=== PATIENT | female | born 1945 | race Caucasian/White ===

== ENCOUNTER 2017-11-12 14:22 | Outpatient (CLI) | payer MEDICARE, BC | END 2017-11-12 14:23 | disposition home or self-care (01) | LOC: BICMAMMO 14:22 | PROVIDERS: ATTEND Family Medicine | DX: Z12.31 Encounter for screening mammogram for malignant neoplasm of breast (principal) | CPT/HCPCS: 77063; 77067 ==

== ENCOUNTER 2017-12-26 13:59 | Outpatient (CLI) | payer MEDICARE, BC | END 2017-12-26 14:00 | disposition home or self-care (01) | LOC: BICCT 13:59 | PROVIDERS: ATTEND Dentist General Practice | DX: Z48.814 Encounter for surgical aftercare following surgery on the teeth or oral cavity (principal); Z96.5 Presence of tooth-root and mandibular implants | CPT/HCPCS: 70486 ==

== ENCOUNTER 2018-12-11 13:07 | Outpatient (CLI) | payer MEDICARE, BC ==
--- NOTE | 2018-12-11 13:40 | MMO ---
Bilateral MAMMO Bilat Screen [facility]. CLINICAL HISTORY: Patient is 73 years old and is seen for screening. The patient has no family history of breast cancer. The patient has no personal history of cancer. VIEWS: The views performed were: bilateral craniocaudal with tomosynthesis and bilateral mediolateral oblique with tomosynthesis. FILMS COMPARED: The present examination has been compared to prior imaging studies performed at [facility] on 08/13/2011, 02/13/2013, 02/23/2014, 03/30/2015, 05/03/2016 and 11/12/2017, and at [facility] on 02/12/2008 and 08/11/2009. MAMMOGRAM FINDINGS: There are scattered fibroglandular densities. There are stable benign appearing calcifications seen in both breasts. There are no suspicious masses, suspicious calcifications, or new areas of architectural distortion. IMPRESSION: THERE IS NO MAMMOGRAPHIC EVIDENCE OF MALIGNANCY. A ROUTINE FOLLOW-UP MAMMOGRAM IN 1 YEAR IS RECOMMENDED. THE RESULTS OF THIS EXAM WERE SENT TO THE PATIENT. ACR BI-RADS Category 2 - Benign finding MAMMOGRAPHY NOTE: 1. A negative mammogram report should not delay a biopsy if a dominant of clinically suspicious mass is present. 2. Approximately 10% to 15% of breast cancers are not detected by mammography. 3. Adenosis and dense breasts may obscure an underlying neoplasm.
--- NOTE | 2018-12-11 13:51 | BD ---
DEXA BONE DENSITY STUDY: Date: 12/11/18 HISTORY: 73-year-old postmenopausal female for screening for osteoporosis. FINDINGS: Lumbar Spine: BMD (g/cm2) L1 0.892 T-Score: -0.9 L2 0.932 T-Score: -0.9 L3 1.042 T-Score: -0.4 L4 1.045 T-Score: -0.1 L1-L4 0.982 T-Score: -0.6 Femoral Neck: 0.742 T-Score: -1.0 Total Femur: 0.835 T-Score: -0.9 IMPRESSION: Normal bone mineral density. POS: [facility]PC
== END 2018-12-11 13:08 | disposition home or self-care (01) ==
LOC: BICMAMMO 13:07
PROVIDERS: ATTEND Family Medicine
DX: Z12.31 Encounter for screening mammogram for malignant neoplasm of breast (principal); Z13.820 Encounter for screening for osteoporosis
CPT/HCPCS: 77063; 77067; 77080

== ENCOUNTER 2019-01-13 11:01 | Outpatient (CLI) | payer MEDICARE, BC ==
--- NOTE | 2019-01-13 11:31 | RAD ---
XR Ribs Lt>=2 View STANDARD HISTORY: Left rib injury. COMPARISON: None. FINDINGS: The bones appear demineralized. No pneumothorax is identified. No evidence of rib fracture. IMPRESSION: No evidence of rib fracture.
== END 2019-01-13 11:02 | disposition home or self-care (01) ==
LOC: BICRAD 11:01
PROVIDERS: ATTEND Family Medicine
DX: S22.32XA Fracture of one rib, left side, initial encounter for closed fracture (principal)

== ENCOUNTER 2020-04-06 14:05 | Outpatient (CLI) | payer MEDICARE, BC ==
--- NOTE | 2020-04-06 14:44 | BD ---
EXAM: DEXA bone density examination HISTORY: 74-year-old postmenopausal female for screening COMPARISON: None FINDINGS: L1--bone mineral density 0.924 g/sq cm; T score -0.6 L2--bone mineral density 1.049 g/sq cm; T score 0.2 L3--bone mineral density 1.045 g/sq cm; T score -0.4 L4--bone mineral density 1.062 g/sq cm; T score 0.0 Total L1-L4--bone mineral density 1.026 g/sq cm; T score -0.2 Left femoral neck--bone mineral density0.729; T score -1.1 Total proximal left femur--bone mineral density 0.869; T score -0.6 IMPRESSION: Osteopenia. This patient has a 10 year WHO fracture risk of a major osteoporotic fracture of 9.4% and of a hip fracture of 1.4%.
--- NOTE | 2020-04-06 14:45 | MMO ---
Bilateral MAMMO Bilat Screen [facility]. CLINICAL HISTORY: Patient is 74 years old and is seen for screening. The patient has no family history of breast cancer. The patient has no personal history of cancer. VIEWS: The views performed were: bilateral craniocaudal with tomosynthesis and bilateral mediolateral oblique with tomosynthesis. FILMS COMPARED: The present examination has been compared to prior imaging studies performed at [facility] on 03/30/2015, 05/03/2016, 11/12/2017 and 12/11/2018. This study has been interpreted with the assistance of computer-aided detection. MAMMOGRAM FINDINGS: There are scattered fibroglandular densities. There are no suspicious masses, suspicious calcifications, or new areas of architectural distortion. IMPRESSION: THERE IS NO MAMMOGRAPHIC EVIDENCE OF MALIGNANCY. A ROUTINE FOLLOW-UP MAMMOGRAM IN 1 YEAR IS RECOMMENDED. THE RESULTS OF THIS EXAM WERE SENT TO THE PATIENT. ACR BI-RADS Category 1 - Negative MAMMOGRAPHY NOTE: 1. A negative mammogram report should not delay a biopsy if a dominant of clinically suspicious mass is present. 2. Approximately 10% to 15% of breast cancers are not detected by mammography. 3. Adenosis and dense breasts may obscure an underlying neoplasm. Reported by: TAMANNA LONDON MD Electonically Signed: [id number]
== END 2020-04-06 14:06 | disposition home or self-care (01) ==
LOC: BICMAMMO 14:05
DX: Z12.31 Encounter for screening mammogram for malignant neoplasm of breast (principal); Z13.820 Encounter for screening for osteoporosis; M85.852 Other specified disorders of bone density and structure, left thigh
CPT/HCPCS: 77063; 77067; 77080

== ENCOUNTER 2022-04-30 11:00 | Outpatient (CLI) | payer MEDICARE, BC | END 2022-04-30 11:01 | disposition home or self-care (01) | LOC: BICMAMMO 11:00 | PROVIDERS: ATTEND Nurse Practitioner Family | DX: Z12.31 Encounter for screening mammogram for malignant neoplasm of breast (principal) | CPT/HCPCS: 77063; 77067 ==

== ENCOUNTER 2022-08-08 14:33 | Outpatient (CLI) | payer MEDICARE, BC | END 2022-08-08 14:34 | disposition home or self-care (01) | LOC: BICRAD 14:33 | PROVIDERS: ATTEND Nurse Practitioner Family | DX: R05.3 Chronic cough (principal); R53.83 Other fatigue; R06.09 Other forms of dyspnea | CPT/HCPCS: 36415; 71046; 80053; 81001; 85025; 87086 ==

== ENCOUNTER 2023-07-02 13:23 | Outpatient (CLI) | payer MEDICARE, BC | END 2023-07-02 13:24 | disposition home or self-care (01) | LOC: BICMAMMO 13:23 | PROVIDERS: ATTEND Nurse Practitioner Family | DX: Z12.31 Encounter for screening mammogram for malignant neoplasm of breast (principal); Z13.820 Encounter for screening for osteoporosis; M85.80 Other specified disorders of bone density and structure, unspecified site | CPT/HCPCS: 77063; 77067; 77080 ==